=== PATIENT | female | born 1950 | race Caucasian/White ===

== ENCOUNTER 2020-02-02 07:45 | Outpatient (CLI) | payer MEDICARE, OTHER, SELFPAY ==
[2020-02-03 14:46] LABS: SARS-CoV-2 RNA PCR Negative
== END 2020-02-02 07:46 | disposition home or self-care (01) ==
DX: Z01.818 Encounter for other preprocedural examination (principal); Z11.59 Encounter for screening for other viral diseases
CPT/HCPCS: 87635; C9803; U0003